=== PATIENT | female | born 1985 ===

== ENCOUNTER 2019-04-03 23:41 | Inpatient (IN) | payer MEDICAID ==
[~2019-04-03] VITALS: Ht 165.1 cm; Wt 93.0 kg
[2019-04-03] MEDS ORDERED: BAYER CHEWABLE81 MG PO (23:52)
[2019-04-03] MEDS ORDERED: LEXAPRO10 MG PO (23:53)
[2019-04-03] MEDS ORDERED: ENTRESTO 24 MG1 EACH PO (23:53)
[2019-04-03] MEDS ORDERED: METOLAZONE5 MG PO (23:53)
[2019-04-03] MEDS ORDERED: LASIX40 MG PO (23:53)
[2019-04-03] MEDS ORDERED: MAG-OXIDE400 MG PO (23:53)
[2019-04-03] MEDS ORDERED: OMEPRAZOLE20 M1 PO ×2 (23:54→23:55)
[2019-04-03] MEDS ORDERED: CLARITHROMYCIN500 M1 PO (23:54)
[2019-04-03] MEDS ORDERED: ALDACTONE25 MG PO (23:54)
[2019-04-03] MEDS ORDERED: TOPROL XL50 MG PO (23:54)
[2019-04-03] MEDS ORDERED: AMOXICILLIN500 M1 PO (23:56)
[2019-04-04] VITALS (14 sets, daily range): BP systolic 93–137; BP diastolic 73–93; Ht 165.1 cm; Wt 93.0 kg
[2019-04-04 01:12] LABS: BASOPHILS 0.2 % (0-2); EOSINOPHILS 0.5 % (0-7); HEMATOCRIT 36.2 % (36.0-48.0); HEMOGLOBIN 12.1 g/dL (12-16); IMMATURE GRANULOCYTES 0.2 % (0-5); MCH 28.2 pg (26.0-34.0); MCHC 33.4 g/dL (31.0-37.0); MCV 84.4 fL (80.0-100.0); NEUTROPHILS 56.1 % (40-80); PLATELET COUNT 236 10x3/uL (130-400); RBC 4.29 10x6/uL (4.00-5.40); RDW 14.2 % (11.5-14.5); WBC 4.3 10x3/uL (4.8-10.8)
--- NOTE | 2019-04-04 01:20 | NUR ---
PT UP TO BEDSIDE COMMODE TOLERATED WELL. SIGNIFICANT OTHER AT BEDSIDE.
[2019-04-04 01:23] LABS: CALC OSMOLALITY 284 mosm/kg (275-300); CALCIUM 8.1 mg/dL (8.5-10.1); CHLORIDE - SERUM 104 mmol/L (98-107); CREATININE - SERUM 0.8 mg/dL (0.6-1.3); GLUCOSE 98 mg/dL (74-106); INR 1.29 (0.85-1.17); POTASSIUM - SERUM 3.2 mmol/L (3.5-5.1); PROTIME 15.5 SECONDS (11.6-15.0); SODIUM 143 mmol/L (136-145); UREA NITROGEN 12 mg/dL (7-18); eGFR NON AFRICAN AMERICAN 89 mL/min (90-120)
[2019-04-04 01:24] LABS: APTT 41.4 SECONDS (22.8-39.4)
[2019-04-04 01:29] LABS: ALBUMIN 3.2 g/dL (3.4-5.0); ALKALINE PHOSPHATASE 83 U/L (46-116); ALT (SGPT) 369 U/L (10-68); BILIRUBIN - TOTAL 1.43 mg/dL (0.2-1.3); PROTEIN - SERUM 6.6 g/dL (6.4-8.2)
--- NOTE | 2019-04-04 03:20 | NUR ---
PT ARRIVED ON UNIT VIA STRETCHER, HOOKED TO MONITORS, PT IS ALERT AND ORIENTED, ON RA WITH 97% O2 SAT. ALL PPP, VSS, CALL LIGHT IN REACH
[2019-04-04 06:33] LABS: BASOPHILS 0.2 % (0-2); EOSINOPHILS 0.4 % (0-7); HEMATOCRIT 33.7 % (36.0-48.0); HEMOGLOBIN 11.4 g/dL (12-16); IMMATURE GRANULOCYTES 0.4 % (0-5); LYMPHOCYTES 24.1 % (15-50); MCH 28.3 pg (26.0-34.0); MCHC 33.8 g/dL (31.0-37.0); MCV 83.6 fL (80.0-100.0); MONOCYTES 12.4 % (2-11); NEUTROPHILS 62.5 % (40-80); RBC 4.03 10x6/uL (4.00-5.40); RDW 14.2 % (11.5-14.5); WBC 5.1 10x3/uL (4.8-10.8)
[2019-04-04 06:37] LABS: PLATELET COUNT 173 10x3/uL (130-400)
[2019-04-04 07:04] LABS: ALBUMIN 3.1 g/dL (3.4-5.0); ALKALINE PHOSPHATASE 77 U/L (46-116); ALT (SGPT) 359 U/L (10-68); AMYLASE - SERUM 28 U/L (25-115); BILIRUBIN - TOTAL 1.54 mg/dL (0.2-1.3); CALC OSMOLALITY 284 mosm/kg (275-300); CALCIUM 8.1 mg/dL (8.5-10.1); CARBON DIOXIDE 25.8 mmol/L (21.0-32.0); CHLORIDE - SERUM 104 mmol/L (98-107); CREATININE - SERUM 0.8 mg/dL (0.6-1.3); GLUCOSE 122 mg/dL (74-106); LIPASE 73 U/L (73-393); PHOSPHOROUS 3.7 mg/dL (2.5-4.9); POTASSIUM - SERUM 3.4 mmol/L (3.5-5.1); PRO BNP 5685 pg/mL (0-125); PROTEIN - SERUM 5.9 g/dL (6.4-8.2); SODIUM 143 mmol/L (136-145); UREA NITROGEN 11 mg/dL (7-18); eGFR NON AFRICAN AMERICAN 89 mL/min (90-120)
--- NOTE | 2019-04-04 07:15 | NUR ---
REPORT RECEIVED. ASSESSMENT COMPLETE PER FLOW SHEET. REFER FOR FINDINGS. VSS WILL CONTINUE TO MONITOR
[2019-04-04 08:58] LABS: INR 1.28 (0.85-1.17); PROTIME 15.4 SECONDS (11.6-15.0)
--- NOTE | 2019-04-04 15:30 | NUR ---
RECEIVED VIA BED FROM ICU. PT IS A/A/OX4 WITHOUT ANY COMPLAINTS AT THIS TIME. IV PATENT TO LEFT AC WITHOUT REDNESS OR EDEMA.
--- NOTE | 2019-04-04 19:17 | NUR ---
EVENING ROUNDS COMPLETE, PT SITTING UP IN BED, FAMILY AT BEDSIDE. AAOX4. PT C/O PAIN 01/05. PRN MORPHINE GIVEN AT THIS TIME. NO SIGNS OF DISTRESS. PT DENIES ANY OTHER NEEDS AT THIS TIME. CL IN REACH, BED IN LOWEST POSITION.
[2019-04-05 00:20] VITALS: BP 109/77
[2019-04-05 04:00] VITALS: BP 120/81
[2019-04-05 07:57] LABS: BASOPHILS 0.2 % (0-2); EOSINOPHILS 0 % (0-7); HEMATOCRIT 33.9 % (36.0-48.0); HEMOGLOBIN 11.3 g/dL (12-16); IMMATURE GRANULOCYTES 0.3 % (0-5); LYMPHOCYTES 15.5 % (15-50); MCH 27.9 pg (26.0-34.0); MCHC 33.3 g/dL (31.0-37.0); MCV 83.7 fL (80.0-100.0); MEAN PLATELET VOLUME 10.8 fL (7.4-10.4); MONOCYTES 13.9 % (2-11); NEUTROPHILS 70.1 % (40-80); RBC 4.05 10x6/uL (4.00-5.40); RDW 14.1 % (11.5-14.5)
[2019-04-05 08:08] LABS: PLATELET COUNT 251 10x3/uL (130-400); WBC 6.6 10x3/uL (4.8-10.8)
[2019-04-05 08:14] LABS: ANION GAP 13.6 mmol/L (8-16); CARBON DIOXIDE 26.6 mmol/L (21.0-32.0); MAGNESIUM - SERUM 1.9 mg/dL (1.8-2.4); PHOSPHOROUS 3.7 mg/dL (2.5-4.9); POTASSIUM - SERUM 3.2 mmol/L (3.5-5.1)
[2019-04-05 09:09] VITALS: BP 108/80; BP 147/91
--- NOTE | 2019-04-05 09:09 | EC ---
PATIENT:JESENIA CARL DATE OF SERVICE: 04/04/19 SEX: F MEDICAL RECORD: [id number] DATE OF : [birth year] LOCATION:D.M2 D.213 AGE OF PATIENT: 33 ADMISSION DATE: 04/04/19 REFERRING PHYSICIAN: INTERPRETING PHYSICIAN: ROCIO WALL MD ECHOCARDIOGRAM REPORT ECHO CHARGES 4 ECHO COMPLETE Date: 04/04/19 CLINICAL DIAGNOSIS: ASSESS EF HX OF CARDIOMYOPATHY/AICD ECHOCARDIOGRAPHIC MEASUREMENTS (adult normal given) AC root (d.<3.7cm) 3.0 cm LV Septum d (<1.2 cm> 1.6 cm Valve Excursion 2.1 cm LV Septum (systole) 1.7 cm Left Atria (s.<4.0cm> 4.4 cm LVPW d(<1.2cm) 1.2 cm RV (d.<2.3cm) 5.4 cm LVPW (sytole) 1.5 cm LV diastole(<5.6CM) 7.4 cm MV E-F(>70mm/sec) cm LV systole 6.1 cm LVOT Diameter 1.7 cm MV exc.(>10mm) 0.90 cm Est.ejection fraction (50-75%) % DOPPLER: LVIT cm/sec A 107.0cm/sec E 105.0 cm/sec LA cm/sec RVSP 67 mmHg LVOT 55 cm/sec AOP1/2T m/s Asc. Ao 90 cm/sec RVOT 47 cm/sec RA cm/sec PA 63 cm/sec AV Gradient Peak 3.27 mmHg AV Mean 1.92 mmHg AV Area 1.4 cm MV Gradient Peak 6.72 mmHg MV Mean 3.02 mmHg MV Area cm COMMENTS: Injection Molder: 2 ALLISON AVILA Manager New Product: 3 Dr. De Paz TAPE# PACS Pericardial Effusion N DATE OF SERVICE: Adequate 2D, color flow and spectral Doppler, M-mode. No LVH. LV internal dimensions are dilated. LV is globally hypokinetic with reduced EF, estimated EF 7.4%. Aortic valve is tricuspid. No evidence of stenosis by Doppler interrogation. Left atrium is dilated at 4.6 cm. Mitral valve is thickened. Moderate MR. Right-sided chambers appear upper limits of normal to mildly dilated. Jifkwvwu-ye-nplcpo TR. ECHOCARDIOGRAM REPORT [id number] JESENIA CARL TRANSINT:[id number] Voice Confirmation ID: [id number] DOCUMENT ID: [id number] ROCIO WALL MD at 0909 CC: [id number] DICTATION DATE: 04/04/19 1606 CLASP MACHINE OPERATOR: 04/05/19 0317 ADM IN [facility] [address] [place] [address]
--- NOTE | 2019-04-05 11:09 | NUR ---
PT'S HR THIS MORNING RUNNING 140. PAIN MEDS GIVEN AND DOWN TO 103 NOW AFTER EKG WHICH SHOWS SINUS TACH.
[2019-04-05 11:18] LABS: APPEARANCE TURBID (CLEAR); BILIRUBIN NEGATIVE (NEGATIVE); COLOR YELLOW (YELLOW); GLUCOSE NEGATIVE (NEGATIVE); KETONE SMALL mg/dL (NEGATIVE); NITRITE NEGATIVE (NEGATIVE); PROTEIN 1+ mg/dL (NEGATIVE); UROBILINOGEN NORMAL (NORMAL)
[2019-04-05 11:19] LABS: AMORPHOUS SEDIMENT >1+ /lpf (NONE SEEN); BACTERIA FEW /hpf (NEGATIVE); EPITHELIAL CELLS 0-5 /hpf (0-5); MUCUS <1+ /lpf (NONE SEEN); RED CELLS - URINE RARE /hpf (0-5); WHITE CELLS - URINE NSEEN /hpf (NEGATIVE)
[2019-04-05 13:48] VITALS: BP 99/70
[2019-04-05 14:09] LABS: ACLA - IGG AB <9 GPL U/mL (0-14); ACLA - IGM AB <9 MPL U/mL (0-12)
[2019-04-05 16:46] LABS: BILIRUBIN - DIRECT 0.17 mg/dL (0.00-0.30); BILIRUBIN - INDIRECT 2.12 mg/dL (0.00-1.00); BILIRUBIN - TOTAL 2.29 mg/dL (0.2-1.3); PROTEIN - SERUM 6.1 g/dL (6.4-8.2)
[2019-04-05 16:47] LABS: ALBUMIN 2.1 g/dL (3.4-5.0)
[2019-04-05 17:12] VITALS: BP 108/67
--- NOTE | 2019-04-05 19:37 | NUR ---
EVENING ROUNDS COMPLETE, PT SITTING UP IN BED, NO SIGNS OF DISTRESS. AAOX4. PT DENIES ANY PAIN AT THIS TIME. PT REQUEST APPLE JUICE AND JELLO SINCE HER DIET WAS CHANGED TO A FULL LIQUID. GAVE PT APPLE JUICE AND JELLO. PT DENIES ANY OTHER NEEDS AT THIS TIME. CL IN REACH, BED IN LOWEST POSITION.
--- NOTE | 2019-04-05 23:31 | NUR ---
PAGED ADRIANA PATHAKN FOR ELEVATED TROPONINE.
[2019-04-06 00:08] LABS: CKMB 0.3 U/L (0.0-3.6); CREATINE KINASE 79 UL (21-215)
--- NOTE | 2019-04-06 06:21 | NUR ---
I have reviewed this patient and I concur with the Shift Assessment completed by the Licensed Practical Nurse today this shift.
[2019-04-06 10:11] LABS: ANA REFLEX - DIRECT Negative (Negative)
[2019-04-06 10:23] LABS: BASOPHILS 0.1 % (0-2); EOSINOPHILS 0 % (0-7); HEMATOCRIT 30.9 % (36.0-48.0); HEMOGLOBIN 10.6 g/dL (12-16); IMMATURE GRANULOCYTES 0.2 % (0-5); MCH 28.3 pg (26.0-34.0); MCHC 34.3 g/dL (31.0-37.0); MCV 82.6 fL (80.0-100.0); MEAN PLATELET VOLUME 10.9 fL (7.4-10.4); MONOCYTES 12.4 % (2-11); NEUTROPHILS 75.3 % (40-80); PLATELET COUNT 251 10x3/uL (130-400); RBC 3.74 10x6/uL (4.00-5.40); RDW 14.2 % (11.5-14.5)
[2019-04-06 10:30] LABS: WBC 12.5 10x3/uL (4.8-10.8)
[2019-04-06 10:45] LABS: ALKALINE PHOSPHATASE 62 U/L (46-116); BILIRUBIN - DIRECT 1.72 mg/dL (0.00-0.30); BILIRUBIN - INDIRECT 1.47 mg/dL (0.00-1.00); BILIRUBIN - TOTAL 3.19 mg/dL (0.2-1.3); CALCIUM 7.8 mg/dL (8.5-10.1); CARBON DIOXIDE 24.2 mmol/L (21.0-32.0); CHLORIDE - SERUM 100 mmol/L (98-107); CKMB 0.3 U/L (0.0-3.6); CREATINE KINASE 89 UL (21-215); GLUCOSE 127 mg/dL (74-106); PHOSPHOROUS 3.7 mg/dL (2.5-4.9); PROTEIN - SERUM 6.1 g/dL (6.4-8.2); SODIUM 135 mmol/L (136-145)
[2019-04-06 10:49] LABS: CALC OSMOLALITY 273 mosm/kg (275-300); CREATININE - SERUM 1.5 mg/dL (0.6-1.3); POTASSIUM - SERUM 3.7 mmol/L (3.5-5.1); UREA NITROGEN 19 mg/dL (7-18); eGFR NON AFRICAN AMERICAN 43 mL/min (90-120)
[2019-04-06 10:50] LABS: ALBUMIN 2.7 g/dL (3.4-5.0); ALT (SGPT) 2179 U/L (10-68); TROPONIN-I 0.156 ng/mL (0.000-0.060)
[2019-04-06 10:52] LABS: HCG SERUM NEGATIVE (NEGATIVE)
--- NOTE | 2019-04-06 10:55 | NUR ---
PT INFORMED OF NPO STATUS FOR PIPIDA SCAN. COMPLAINTS OF NAUSEA BUT DRANK SOME JUICE EARLY AND ASKING FOR MORE NOW ALONG WITH NAUSEA MEDS. ZOFRAN GIVEN AT 0810 THIS MORNING ALONG WITH PROTONIX AND PAIN MEDS. NOT SURE IF SHE WILL BE ABLE TO TAKE BP MEDS BUT WILL TRY WITH SIP.
[2019-04-06 11:10] LABS: IMMUNOGLOBULIN G 989 mg/dL (700-1600); IMMUNOGLOBULIN M 75 mg/dL (26-217)
[2019-04-06 14:09] LABS: SPE - A/G RATIO 1.1 (0.7-1.7); SPE - ALPHA-1 GLOBULIN 0.3 g/dL (0.0-0.4); SPE - ALPHA-2 GLOBULIN 0.7 g/dL (0.4-1.0); SPE - BETA GLOBULIN 0.8 g/dL (0.7-1.3); SPE - GAMMA GLOBULIN 0.9 g/dL (0.4-1.8); SPE - M-SPIKE Not Observed g/dL (Not Observed); SPE - TOTAL PROTEIN 5.8 g/dL (6.0-8.5)
[2019-04-06 14:14] VITALS: BP 101/60
[2019-04-06] MEDS ORDERED: ZOSYN 4.5 GM/N4.5 G1 IV (15:37)
[2019-04-06] MEDS ORDERED: LOVENOX INJ100 MG/ML SC (15:38)
[2019-04-06] MEDS ORDERED: DOBUTAMINE IV (17:06)
--- NOTE | 2019-04-06 17:16 | MORECARE ---
CASE MANAGEMENT DISCHARGE SUMMARY PATIENT: JESENIA CARL UNIT: [id number] ADM DATE: 04/04/19 AGE: 33 : 87 SEX: F ROOM/BED: D.2131 AUTHOR: ALISON SOTOMAYOR PHYSICIAN: REFERRING PHYSICIAN: ROCIO MEHTA MD DATE OF SERVICE: 04/06/19 Discharge Plan Patient Name: JESENIA CARL Facility: [facility]:[place] : 1985 Planned Disposition: Acute Care Hospital Anticipated Discharge Date: 04/06/19 Discharge Date: Expected LOS: 2 Initial Reviewer: [email or web address] Initial Review Date: 04/04/2019 Generated: 04/06/19 6:16 pm External Providers External Provider: [facility] Next Contact Date: 04/06/2019 Service Request Date: Service Type: Resolution: Reviewer: Comments: Patient Name: JESENIA CARL Page 68455 at 1716 All edits/amendments must be made on the electronic document DICTATION DATE: 04/06/191715 HYDROTREATER OPERATOR: JOAN 04/06/191715 RPT#: [id number] DC DATE: STATUS: ADM IN [facility] [address] [place] [address] END OF REPORT
--- NOTE | 2019-04-06 17:25 | MORECARE ---
CASE MANAGEMENT DISCHARGE SUMMARY PATIENT: JESENIA CARL UNIT: [id number] ADM DATE: 04/04/19 AGE: 33 : 87 SEX: F ROOM/BED: D.2131 AUTHOR: ALISON SOTOMAYOR PHYSICIAN: REFERRING PHYSICIAN: ROCIO MEHTA MD DATE OF SERVICE: 04/06/19 Discharge Plan Patient Name: JESENIA CARL Facility: [facility]:[place] : 1985 Planned Disposition: Acute Care Hospital Anticipated Discharge Date: 04/06/19 Discharge Date: Expected LOS: 2 Initial Reviewer: [email or web address] Initial Review Date: 04/04/2019 Generated: 04/06/19 6:25 pm Comments DCP- Discharge Planning Updated by [email or web address]: Jarvis Paz on 04/06/19 4:[address] Patient Name: JESENIA CARL Admission Status: ER Accout number: [id number] Admission Date: 04-04-2019 : 1985 Admission Diagnosis: Attending: PARISH Current LOS: 2 Anticipated DC Date: 04-06-2019 Planned Disposition: Acute Care Hospital Primary Insurance: MEDICAID [place] PLANNED EXTERNAL PROVIDER: [facility] Discharge Planning Comments: CM SPOKE TO AAMIR GIRON WHO INFORMED CM THAT THEY HAVE EVALUTED PT AND DR. DIAZ IS WANTING TRANSFER TO [facility] IN [place] FOR LVAD AND HEART TRANSPLANT EVALUATION, PT WITH EF OF 7%. CM ATTEMPTED TO MEET WITH PT X4, PT OUT OF ROOM FOR FURTHER TESTING. CM CALLED APPLICATION PACKAGING CONSULTANT GIANLUCA, [phone], WHO PROVIDED ADMINISTRATIVE APPROVAL FOR TRANSFER PER KATEY. CM CALLED [facility], , SPOKE TO MALGORZATA WHO TOOK REFERRAL INFORMATION WITH DR. MENDOZA CONTACT CELL NUMBER. CM FAXED FACE SHEET INSTRUCTED TO TRANSFER CENTER AT [phone]. INSPECTOR METAL FABRICATING NURSE NOTIFIED. TRANSFER CENTER WORKING ON TRANSFER REQUEST TO [facility]. Science Instructor: Jarvis Paz Last DP export: 04/06/19 4:16 pm Patient Name: JESENIA CARL Page [phone] at 1725 All edits/amendments must be made on the electronic document DICTATION DATE: 04/06/191723 CARBOY FILLER: JOAN 04/06/191723 RPT#: [id number] DC DATE: STATUS: ADM IN [facility] [address] [place] [address] END OF REPORT
--- NOTE | 2019-04-06 18:30 | NUR ---
DOBUTAMINE DRIP INITIATED PER ORDER.
--- NOTE | 2019-04-06 19:10 | NUR ---
BEDSIDE REPORT RECEIVED FROM DAY SHIFT, PT CARE ASSUMED. INTRODUCED SELF AND WROTE NAME ON BOARD. PT SITTING UP IN BED, WATCHING TV, AAOX4. REQUESTING WATER, PROVIDED. DENIES PAIN OR ANY OTHER NEEDS AT THIS TIME. BED IN LOWEST POSITION, SR X1, CALL LIGHT WITHIN REACH. WILL CONTINUE TO MONITOR.
[2019-04-06 20:00] VITALS: BP 107/73
[2019-04-06 21:48] LABS: CKMB 0.6 U/L (0.0-3.6); CREATINE KINASE 120 UL (21-215)
[2019-04-06 21:50] LABS: TROPONIN-I 0.085 ng/mL (0.000-0.060)
[2019-04-07] VITALS: BP 94/60
--- NOTE | 2019-04-07 00:50 | NUR ---
PIV 22 GAUGE SITED TO RIGHT FOREARM, X1 ATTEMPT, PT TOLERATED WELL. FLUSHES WITHOUT ISSUE.
[2019-04-07 04:00] VITALS: BP 99/58
[2019-04-07 04:59] LABS: BASOPHILS 0.1 % (0-2); EOSINOPHILS 0.3 % (0-7); HEMATOCRIT 31.9 % (36.0-48.0); HEMOGLOBIN 10.9 g/dL (12-16); IMMATURE GRANULOCYTES 0.4 % (0-5); LYMPHOCYTES 16.1 % (15-50); MCH 28.2 pg (26.0-34.0); MCHC 34.2 g/dL (31.0-37.0); MCV 82.6 fL (80.0-100.0); MEAN PLATELET VOLUME 10.5 fL (7.4-10.4); MONOCYTES 9.6 % (2-11); NEUTROPHILS 73.5 % (40-80); PLATELET COUNT 232 10x3/uL (130-400); RBC 3.86 10x6/uL (4.00-5.40); RDW 14.4 % (11.5-14.5); WBC 9.6 10x3/uL (4.8-10.8)
[2019-04-07 05:24] LABS: CALC OSMOLALITY 277 mosm/kg (275-300); CALCIUM 7.5 mg/dL (8.5-10.1); CARBON DIOXIDE 28.5 mmol/L (21.0-32.0); CHLORIDE - SERUM 102 mmol/L (98-107); CKMB 0.6 U/L (0.0-3.6); CREATINE KINASE 107 UL (21-215); CREATININE - SERUM 1.3 mg/dL (0.6-1.3); GLUCOSE 118 mg/dL (74-106); SODIUM 138 mmol/L (136-145); TROPONIN-I 0.057 ng/mL (0.000-0.060); UREA NITROGEN 16 mg/dL (7-18); eGFR NON AFRICAN AMERICAN 51 mL/min (90-120)
[2019-04-07 05:37] LABS: PHOSPHOROUS 2.2 mg/dL (2.5-4.9)
[2019-04-07 06:09] LABS: HEPATITIS C ANTIBODY 0.4 S/CO RAT (0.0-0.9)
--- NOTE | 2019-04-07 08:31 | NUR ---
MAXIM FROM [facility] CALLED, STILL AWAITING BED ASSIGNMENT. WILL CALL WHEN ONE AVAILABLE.
--- NOTE | 2019-04-07 09:25 | NUR ---
PT STATES SHE CAN NOT GET UP TO TAKE A SHOWER AND NO ONE HJAS GIVEN HER A BATH. I STATED TO PT I WILL HAVE MANAGER LVN COME BATHE HER. SHE VERBALIZED UNDERSTANDING.
--- NOTE | 2019-04-07 09:25 | NUR ---
0615 DOSE OF PIPERCILLIN TUBING WAS VLAMPED AND DID NOT INFUSE.UNCLAMPED AND INFUSING NOW. WILL SKIP 1215 PIPERCILLIN DOSE.
--- NOTE | 2019-04-07 09:32 | MORECARE ---
CASE MANAGEMENT DISCHARGE SUMMARY PATIENT: JESENIA CARL UNIT: [id number] ADM DATE: 04/04/19 AGE: 33 : 87 SEX: F ROOM/BED: D.2131 AUTHOR: СВЕТЛАНА,DOC PHYSICIAN: REFERRING PHYSICIAN: ROCIO MEHTA MD DATE OF SERVICE: 04/07/19 Discharge Plan Patient Name: JESENIA CARL Facility: [facility]:[place] : 1985 Planned Disposition: Acute Care Hospital Anticipated Discharge Date: 04/06/19 Discharge Date: Expected LOS: 2 Initial Reviewer: [email or web address] Initial Review Date: 04/04/2019 Generated: 04/07/19 10:31 am Comments DCP- Discharge Planning Updated by [email or web address]: Jarvis Paz on 04/06/19 4:[address] Patient Name: JESENIA CARL Admission Status: ER Accout number: [id number] Admission Date: 04-04-2019 : 1985 Admission Diagnosis: Attending: PARISH Current LOS: 2 Anticipated DC Date: 04-06-2019 Planned Disposition: Acute Care Hospital Primary Insurance: MEDICAID [place] PLANNED EXTERNAL PROVIDER: [facility] Discharge Planning Comments: CM SPOKE TO AAMIR GIRON WHO INFORMED CM THAT THEY HAVE EVALUTED PT AND DR. DIAZ IS WANTING TRANSFER TO [facility] IN [place] FOR LVAD AND HEART TRANSPLANT EVALUATION, PT WITH EF OF 7%. CM ATTEMPTED TO MEET WITH PT X4, PT OUT OF ROOM FOR FURTHER TESTING. CM CALLED TUBULAR RIVETER GIANLUCA, [phone], WHO PROVIDED ADMINISTRATIVE APPROVAL FOR TRANSFER PER KATEY. CM CALLED [facility], , SPOKE TO MALGORZATA WHO TOOK REFERRAL INFORMATION WITH DR. MENDOZA CONTACT CELL NUMBER. CM FAXED FACE SHEET INSTRUCTED TO TRANSFER CENTER AT [phone]. PAPERHANGER PIPE NURSE NOTIFIED. TRANSFER CENTER WORKING ON TRANSFER REQUEST TO [facility]. Answering Service Telephone Operator: Jarvis Paz DCPIA - Discharge Planning Initial Assessment Updated by [email or web address]: Jarvis Paz on 04/07/19 9:30 am * Is the patient Alert and Oriented? Yes * How many steps to enter\exit or inside your home? NONE * PCP [facility] IN [place] * Pharmacy [facility] IN [place] * Preadmission Environment Home with Family * ADLs Independent * Equipment None * Other Equipment NO MEDICAL EQUIPMENT PROVIDER PREFERENCE * List name and contact numbers for known caregivers / representatives who currently or will assist patient after discharge: CLAIRE GREEN, FRIEND, * Verbal permission to speak to the caregivers and representatives has been obtained from the patient. N/A * Community resources currently utilized None * Please name any agencies selected above. NONE * Additional services required to return to the preadmission environment? Yes * Can the patient safely return to the preadmission environment? Yes * Has this patient been hospitalized within the prior 30 days at any hospital? No Last DP export: 04/06/19 4:25 pm Patient Name: JESENIA CARL Page [phone] at 0932 All edits/amendments must be made on the electronic document DICTATION DATE: 04/07/19930 WOOD SASH AND FRAME CARPENTER: JOAN 04/07/19930 RPT#: [id number] DC DATE: STATUS: ADM IN [facility] [address] [place] [address] END OF REPORT
--- NOTE | 2019-04-07 09:39 | MORECARE ---
CASE MANAGEMENT DISCHARGE SUMMARY PATIENT: JESENIA CARL UNIT: [id number] ADM DATE: 04/04/19 AGE: 33 : 87 SEX: F ROOM/BED: D.2131 AUTHOR: СВЕТЛАНА,DOC PHYSICIAN: REFERRING PHYSICIAN: ROCIO MEHTA MD DATE OF SERVICE: 04/07/19 Discharge Plan Patient Name: JESENIA CARL Facility: [facility]:[place] : 1985 Planned Disposition: Acute Care Hospital Anticipated Discharge Date: 04/06/19 Discharge Date: Expected LOS: 2 Initial Reviewer: [email or web address] Initial Review Date: 04/04/2019 Generated: 04/07/19 10:39 am Comments DCP- Discharge Planning Updated by [email or web address]: Jarvis Paz on 04/07/19 8:[address] Patient Name: JESENIA CARL Encounter No: [id number] : 1985 Primary Insurance: MEDICAID [place] Anticipated DC Date: 04-06-2019 Planned Disposition: Acute Care Hospital External Planned Provider: [facility] DCP follow-up note: CM MET WITH PT IN ROOM TO DISCUSS DISCHARGE PLANNING AND NEEDS. PT REPORTS LIVING AT HOME INDEPENDENTLY WITH HER MINOR CHILDREN. PT HAS NO MEDICAL EQUIPMENT AND NO OUTSIDE SERVICES ASSISTING IN THE HOME. CM DISCUSSED AVAILABILITY OF HOME HEALTH, REHAB SERVICES AND MEDICAL EQUIPMENT. PT DENIES DISCHARGE NEEDS, REPORTS AGREEMENT TO TRANSFER TO [facility] DISCUSSED WITH PHYSICIAN. CM SPOKE TO HORTICULTURE SUPERVISOR NURSE, [facility] HAS CALLED AND IS WAITING BED AVAILABILITY FOR TRANSFER. CM TO CONTINUE TO FOLLOW AND ASSIST IF NEEDED. RODRIGO Saldana DCP- Discharge Planning Updated by [id number]: Jarvis Paz on 04/06/19 4:[address] Patient Name: JESENIA CARL Admission Status: ER Accout number: [id number] Admission Date: 04-04-2019 : 1985 Admission Diagnosis: Attending: PARISH Current LOS: 2 Anticipated DC Date: 04-06-2019 Planned Disposition: Acute [facility] Primary Insurance: MEDICAID [place] PLANNED EXTERNAL PROVIDER: [facility] Discharge Planning Comments: CM SPOKE TO AAMIR GIRON WHO INFORMED CM THAT THEY HAVE EVALUTED PT AND DR. DIAZ IS WANTING TRANSFER TO [facility] IN [place] FOR LVAD AND HEART TRANSPLANT EVALUATION, PT WITH EF OF 7%. CM ATTEMPTED TO MEET WITH PT X4, PT OUT OF ROOM FOR FURTHER TESTING. CM CALLED FIRE CREW SPECIALIST GIANLUCA, [phone], WHO PROVIDED ADMINISTRATIVE APPROVAL FOR TRANSFER PER KATEY. CM CALLED [facility], , SPOKE TO MLAGORZATA WHO TOOK REFERRAL INFORMATION WITH DR. MENDOZA CONTACT CELL NUMBER. CM FAXED FACE SHEET INSTRUCTED TO TRANSFER CENTER AT [phone]. HORTICULTURE SUPERVISOR NURSE NOTIFIED. TRANSFER CENTER WORKING ON TRANSFER REQUEST TO [facility] IN [place]. Rebar Fabricator: Jarvis Paz DCPIA - Discharge Planning Initial Assessment Updated by [email or web address]: Jarvis Paz on 04/07/19 9:30 am * Is the patient Alert and Oriented? Yes * How many steps to enter\exit or inside your home? NONE * PCP [facility] IN [place] * Pharmacy [facility] IN [place] * Preadmission Environment Home with Family * ADLs Independent * Equipment None * Other Equipment NO MEDICAL EQUIPMENT PROVIDER PREFERENCE * List name and contact numbers for known caregivers / representatives who currently or will assist patient after discharge: CLAIRE GREEN, FRIEND, * Verbal permission to speak to the caregivers and representatives has been obtained from the patient. N/A * Community resources currently utilized None * Please name any agencies selected above. NONE * Additional services required to return to the preadmission environment? Yes * Can the patient safely return to the preadmission environment? Yes * Has this patient been hospitalized within the prior 30 days at any hospital? No Last DP export: 04/07/19 8:32 a Patient Name: JESENIA CARL Page [id number] at 0939 All edits/amendments must be made on the electronic document DICTATION DATE: 04/07/19938 CADD MANAGER: JOAN 04/07/19938 RPT#: [id number] DC DATE: STATUS: ADM IN [facility] [address] [place] [address] END OF REPORT
[2019-04-07 09:50] VITALS: BP 115/73
--- NOTE | 2019-04-07 10:51 | NUR ---
PT C/O OF EYES BEING "WEAK AND GETTING WEAKER AND ITCHING". PT STATES THIS HAS BEEN GOING ON SINCE YESTERDAY EVENING AFTER THEY HUNG NEW MEDICATION(DOBUTAMINE). PT HAS BEEN RUBBING EYES AND LOOKED IN PT'S EYES AND SHOULD WOULD ONLY KEEP THEM OPEN FOR A SECOND THEN SHUT THEM AND STATE "THEY'RE WEAK." ONLY RIGHT INNER CORNER OF EYE IS A LITTLE RED. CALLED SALES PROMOTION COORDINATOR OFFICE AND AM WAITING FOR A CALL BACK.
--- NOTE | 2019-04-07 11:01 | NUR ---
PT WEIGHS 220 LBS ON STANDING SCALE. CHANGED DOBUTAMINE DRIP RATE TO 15ML/HR.
--- NOTE | 2019-04-07 11:08 | NUR ---
SPOKE WITH LARISA RIVAS WITH CARDIOLOGY ABOUT PT C/O OF HER EYES ITCHING AND BEING WEAK. SHE STATES SHE LOOKED IT UP AND DOBUTAMINE HAS NO SIDE EFFECTS OF CAUSING ANY EYE PROBLEMS. SHE STATES PT NEEDST THE DOBUTAMINE AND HER LAB LEVELS ARE IMPROVING SINCE SHE HAS BEEN ON IT AND THE GOOD IS OUTWEIGHING THE BAD. SHE STATES TO CALL PRIMARY AND GET SOME EYE DROPS ORDERED. SHE STATES SHE WOULD ORDER THEM BUT SHE DOESN'T KNOW WHAT TO ORDER. I VERBALIZED UNDERSTNADING. RADHA RIVAS PAGED.
[2019-04-07 11:36] LABS: ALT (SGPT) 1493 U/L (10-68)
--- NOTE | 2019-04-07 12:36 | NUR ---
TRANSFER CENTER TO CALL WITH ROOM NUMBER. UNIT 8 B RM 834. TO CALL REPORT TO [phone]
--- NOTE | 2019-04-07 12:43 | NUR ---
SPOKE WITH RADHA RIVAS ABOUT PT NEEDING EYE DROPS AND MY CONVERSATION WITH LARISA RIVAS ABOUT DOBUTAMINE DRIP. SHE STATES HER AND DR. TYSON VAIL LLLOOK AT PT'S EYES WHEN THEY ROUND AND WILL MAKE THAT DECISION. I VERBALIZED UNDERSTANDING. SHE ALSO STATES PT WILL PROBABLY BE DC'D BEFORE THEY ROUND TO LOOK AT HER EYES SO THE DOCTORS AT [facility] CAN GET HER SOMETHING THERE.
--- NOTE | 2019-04-07 12:55 | NUR ---
CALLED REPORT TO SEUN VILLASENOR AT [facility].
[2019-04-07 13:10] LABS: LUPUS - INTERPRETATION Comment: (()); LUPUS - THROMBIN TIME 18.2 sec (0.0-23.0); LUPUS - dRVVT 34.9 sec (0.0-47.0); PROTEIN S - FREE 103 % (57-157); PROTEIN S - FREE 98 % (57-157); PROTEIN S - FUNCTIONAL 62 % (63-140); PROTEIN S - TOTAL 48 % (60-150); PROTEIN S - TOTAL 52 % (60-150); PTT-LA 51.5 sec (0.0-51.9)
--- NOTE | 2019-04-07 14:43 | NUR ---
LFT AC 30G IV LEAKING. DC'D WITH CATH INTACT. RIGHT FA 22G IV INFUSING DOUTAMINE AT 15ML/HR WITH NO PROBLEMS.
--- NOTE | 2019-04-07 15:13 | NUR ---
CALLED [facility] AND THEY STATE IT WILL BE ABOUT 45 MIN. BEFORE THEY CAN GET PT. CALLED [facility] AND STATED TO THAT NURSE THAT PT'S LEFT AC IV INFILTRATED AND I TOOK IT OUT BUT SHE STILL HAS THE RIGHT FA IV AND THAT [facility] WILL BE HERE TO TRANSFER HER IN ABOUT 45 MIN. THEY VEBRALIZED UNDERSTANDING.
--- NOTE | 2019-04-07 15:23 | NUR ---
DISCHARGE INSTRUCTIONS GIVEN TO PT. PT HAS NO FURTHER QUESTIONS. CHART COPY SIGNED. WILL DC TELEMETRY WHEN [facility] ARRIVES.
--- NOTE | 2019-04-07 16:06 | NUR ---
PT LEFT VIA STRETCHER WITH HOTELbeat. PT TOOK ALL BELONGINGS. RIGHT FA IV INFUSING DOBUTAMINE. TELEMETRY DC'D.
[2019-04-08 04:07] LABS: PROTEIN C - ANTIGEN 58 % (60-150); PROTEIN C - FUNCTIONAL 62 % (73-180)
[2019-04-08 05:09] LABS: IMMUNOGLOBULIN E 233 IU/mL (6-495)
[2019-04-08 06:09] LABS: ENDOMYSIAL ANTIBODY IGA Negative (Negative)
--- NOTE | 2019-04-09 12:31 | MORECARE ---
CASE MANAGEMENT DISCHARGE SUMMARY PATIENT: JESENIA CARL UNIT: [id number] ADM DATE: 04/04/19 AGE: 33 : 89 SEX: F ROOM/BED: D.2131 AUTHOR: СВЕТЛАНА,DOC PHYSICIAN: REFERRING PHYSICIAN: ROCIO MEHTA MD DATE OF SERVICE: 04/09/19 Discharge Plan Patient Name: JESENIA CARL Facility: [facility]:[place] : 1985 Planned Disposition: Acute Care Hospital Anticipated Discharge Date: 04/06/19 Discharge Date: 04/07/2019 Expected LOS: 2 Initial Reviewer: PAT Initial Review Date: 04/04/2019 Generated: 04/09/19 1:31 pm Comments DCP- Discharge Planning Updated by [email or web address]: Jarvis Paz on 04/07/19 8:[address] Patient Name: JESENIA CARL Encounter No: [id number] : 1985 Primary Insurance: MEDICAID [place] Anticipated DC Date: 04-06-2019 Planned Disposition: [facility] External Planned Provider: [facility] DCP follow-up note: CM MET WITH PT IN ROOM TO DISCUSS DISCHARGE PLANNING AND NEEDS. PT REPORTS LIVING AT HOME INDEPENDENTLY WITH HER MINOR CHILDREN. PT HAS NO MEDICAL EQUIPMENT AND NO OUTSIDE SERVICES ASSISTING IN THE HOME. CM DISCUSSED AVAILABILITY OF HOME HEALTH, REHAB SERVICES AND MEDICAL EQUIPMENT. PT DENIES DISCHARGE NEEDS, REPORTS AGREEMENT TO TRANSFER TO [facility] DISCUSSED WITH PHYSICIAN. CM SPOKE TO HYDROLOGIC ENGINEER NURSE, [facility] HAS CALLED AND IS WAITING BED AVAILABILITY FOR TRANSFER. CM TO CONTINUE TO FOLLOW AND ASSIST IF NEEDED. Jarvis Paz CASE MANAGEMENT DCP- Discharge Planning Updated by [email or web address]: Jarvis Paz on 04/06/19 4:[address] Patient Name: JESENIA CARL Admission Status: ER Accout number: [id number] Admission Date: 04-04-2019 : 1985 Admission Diagnosis: Attending: PARISH Current LOS: 2 Anticipated DC Date: 04-06-2019 Planned Disposition: Acute [facility] Primary Insurance: MEDICAID [place] PLANNED EXTERNAL PROVIDER: [facility] Discharge Planning Comments: CM SPOKE TO AAMIR GIRON WHO INFORMED CM THAT THEY HAVE EVALUTED PT AND DR. DIAZ IS WANTING TRANSFER TO [facility] IN [place] FOR LVAD AND HEART TRANSPLANT EVALUATION, PT WITH EF OF 7%. CM ATTEMPTED TO MEET WITH PT X4, PT OUT OF ROOM FOR FURTHER TESTING. CM CALLED LANDING WORKER GIANLUCA, [phone], WHO PROVIDED ADMINISTRATIVE APPROVAL FOR TRANSFER PER KATEY. CM CALLED [facility], , SPOKE TO MALGORZATA WHO TOOK REFERRAL INFORMATION WITH DR. MENDOZA CONTACT CELL NUMBER. CM FAXED FACE SHEET INSTRUCTED TO TRANSFER CENTER AT [phone]. HYDROLOGIC ENGINEER NURSE NOTIFIED. TRANSFER CENTER WORKING ON TRANSFER REQUEST TO [facility] IN [place]. Wood Sawyer: Jarvis Paz DCPIA - Discharge Planning Initial Assessment Updated by [id number]: Jarvis Paz on 04/07/19 9:30 am * Is the patient Alert and Oriented? Yes * How many steps to enter\exit or inside your home? NONE * PCP [facility] IN [place] * Pharmacy [facility] [place] * Preadmission Environment Home with Family * ADLs Independent * Equipment None * Other Equipment NO MEDICAL EQUIPMENT PROVIDER PREFERENCE * List name and contact numbers for known caregivers / representatives who currently or will assist patient after discharge: CLAIRE GREEN, FRIEND, * Verbal permission to speak to the caregivers and representatives has been obtained from the patient. N/A * Community resources currently utilized None * Please name any agencies selected above. NONE * Additional services required to return to the preadmission environment? Yes * Can the patient safely return to the preadmission environment? Yes * Has this patient been hospitalized within the prior 30 days at any hospital? No Last DP export: 04/07/19 8:39 a Patient Name: JESENIA CARL Page 57314 at 1231 All edits/amendments must be made on the electronic document DICTATION DATE: 04/09/19 1231 INDUSTRIAL SECURITY ANALYST: JOAN 04/09/19 1231 RPT#: [id number] DC DATE:04/07/19 STATUS: DIS IN [facility] [address] [place] [address] END OF REPORT
== END 2019-04-07 16:06 | disposition short-term general hospital (02) | DRG 299 ==
LOC: D.ER 23:41 → D.M2 04-04 00:06 → D.ICU 04-04 00:06 → D.M2 04-04 15:03
PROVIDERS: Family Medicine; Internal Medicine Hematology & Oncology; Internal Medicine Interventional Cardiology; Surgery; ADMIT Family Medicine; ATTEND Family Medicine
DX: I82.890 Acute embolism and thrombosis of other specified veins (principal); I50.23 Acute on chronic systolic (congestive) heart failure; R17 Unspecified jaundice; K81.0 Acute cholecystitis; I11.0 Hypertensive heart disease with heart failure; R79.89 Other specified abnormal findings of blood chemistry; E66.9 Obesity, unspecified; Z68.34 Body mass index [BMI] 34.0-34.9, adult; I08.1 Rheumatic disorders of both mitral and tricuspid valves